=== PATIENT | female | born 1950 | race Caucasian/White ===

== ENCOUNTER 2019-03-11 08:44 | Emergency (ER) | payer MEDICARE, OTHER ==
[~2019-03-11] VITALS: Ht 162.6 cm; Wt 63.5 kg
[2019-03-11 09:14] VITALS: BP 127/86
[2019-03-11] MEDS ORDERED: IBUPROFEN 800 MG TAB PO ONE (09:30)
== END 2019-03-11 10:16 | disposition home or self-care (01) ==
LOC: ER 08:44
DX: S52.571A Other intraarticular fracture of lower end of right radius, initial encounter for closed fracture (principal); S52.614A Nondisplaced fracture of right ulna styloid process, initial encounter for closed fracture; M19.032 Primary osteoarthritis, left wrist; S66.911A Strain of unspecified muscle, fascia and tendon at wrist and hand level, right hand, initial encounter; J44.9 Chronic obstructive pulmonary disease, unspecified; I10 Essential (primary) hypertension; Z88.6 Allergy status to analgesic agent; W20.8XXA Other cause of strike by thrown, projected or falling object, initial encounter; Y93.89 Activity, other specified; Y92.89 Other specified places as the place of occurrence of the external cause; Y99.8 Other external cause status
CPT/HCPCS: 29125; 73110

== ENCOUNTER 2019-03-12 18:10 | Emergency (ER) | payer MEDICARE, OTHER ==
[~2019-03-12] VITALS: Ht 162.6 cm; Wt 59.0 kg
[2019-03-12 18:33] VITALS: BP 126/99
[2019-03-12] MEDS ORDERED: ONDANSETRON ODT 4 MG TAB PO ONE (18:45)
== END 2019-03-12 19:52 | disposition left against medical advice (07) ==
LOC: ER 18:12
DX: M25.521 Pain in right elbow (principal); Z53.21 Procedure and treatment not carried out due to patient leaving prior to being seen by health care provider
CPT/HCPCS: Q0162